=== PATIENT | female | born 1960 | race African-American/Black ===

== ENCOUNTER 2024-05-18 08:13 | Outpatient (CLI) | payer BC, OTHER | END 2024-05-18 08:14 | disposition home or self-care (01) | LOC: CSHSLEEP 08:13 | PROVIDERS: ATTEND Family Medicine | DX: G47.33 Obstructive sleep apnea (adult) (pediatric) (principal); R53.83 Other fatigue; I10 Essential (primary) hypertension | CPT/HCPCS: 95811 ==